=== PATIENT | female | born 1945 | race African-American/Black ===

== ENCOUNTER 2017-03-15 07:47 | Emergency (ER) | payer MEDICARE, BC ==
[~2017-03-15] VITALS: Ht 165.1 cm; Wt 68.0 kg
[2017-03-15] MEDS ORDERED: ACETAMINOPHEN 325MG TABLET PO ONE (08:45)
[2017-03-15 10:20] VITALS: BP 162/77
== END 2017-03-15 10:37 | disposition home or self-care (01) ==
LOC: ER 08:00
DX: S00.83XA Contusion of other part of head, initial encounter (principal); M54.2 Cervicalgia; I10 Essential (primary) hypertension; E11.9 Type 2 diabetes mellitus without complications; F17.210 Nicotine dependence, cigarettes, uncomplicated; V43.52XA Car driver injured in collision with other type car in traffic accident, initial encounter; Y93.89 Activity, other specified; Y92.488 Other paved roadways as the place of occurrence of the external cause
CPT/HCPCS: 70450; 70486; 72125; 99284